=== PATIENT | female | born 1985 | race Caucasian/White ===

== ENCOUNTER 2016-07-20 04:13 | Day surgery (SDC) | payer OTHER ==
[2016-07-20] VITALS (10 sets, daily range): BP systolic 101–119; BP diastolic 53–78; PULSE 69–96; TEMP 97.5–98
[~2016-07-20] VITALS: Ht 165.1 cm; Wt 90.8 kg
[~2016-07-20 04:13] MED LIST: FIORICET W/CODE1 CA1 PO; KLONOPIN 0.5MG0.5 MG PO; MOTRIN 600600 MG/TAB PO; NEXPLANON68 MG ID; NO HOME MEDICATIONS; NORCO 325 MG-51 TAB PO; PERCOCET 325 MG1 TA2 PO; PRENATAL1 TA1 PO; ULTRAM 50MG TAB50 MG PO
[2016-07-20] MEDS ORDERED: CELEXA 20MG20 MG/TAB PO (04:20)
[2016-07-20] MEDS ORDERED: BIRTH CONTROL PILL (04:21)
[2016-07-20 04:42] LABS: BASO % 0.2 % (0.0-2.0); EOS # 0.1 (0.0-0.7); EOS % 0.5 % (0-4.0); GRAN # 12.7 (1.4-6.5); GRAN % 80.1 % (42.2-75.2); HEMATOCRIT 42.2 % (37.0-47.0); HEMOGLOBIN 14.3 g/dl (12.5-16.0); LYMPH # 2.2 (1.2-3.4); LYMPH % 13.8 % (20.0-51.0); MEAN CELL VOLUME 86 fl (80.0-100.0); MEAN CORPUSCULAR HEMOGLOBIN 29 pg (27.0-31.0); MEAN CORPUSCULAR HGB CONC 34 g/dl (33.0-37.0); MEAN PLATELET VOLUME 10.4 fl (7.4-10.4); MONO # 0.8 (0.1-0.6); MONO % 5.1 % (1.7-9.3); PLATELET COUNT 300 K/mm3 (130-400); RED BLOOD COUNT 4.91 M/mm3 (4.10-5.30); REDCELL DISTRIBUTION WIDTH-CV 11.8 % (11.5-14.5); WHITE BLOOD COUNT 15.9 K/mm3 (4.8-10.8)
[2016-07-20 04:56] LABS: ADJUSTED CALCIUM 9.6 mg/dL (8.4-10.2); ALANINE AMINOTRANSFERASE 32 U/L (9-52); ALBUMIN 3.8 gm/dL (3.5-5.0); ALKALINE PHOSPHATASE 90 U/L (50-136); ANION GAP 11 mmol/L (7-16); BILIRUBIN,TOTAL 0.8 mg/dL (0.0-1.0); BLOOD UREA NITROGEN 10 mg/dL (7-17); CALCIUM 9.4 mg/dL (8.4-10.2); CARBON DIOXIDE 25 mmol/L (22-30); CHLORIDE 102 mmol/L (98-107); CREATININE, serum 0.63 mg/dL (0.52-1.25); GLUCOSE 113 mg/dL (74-106); LIPASE 43 U/L (23-300); POTASSIUM 3.3 mmol/L (3.4-5.0); SODIUM 139 mmol/L (137-145); TOTAL PROTEIN 6.3 gm/dL (6.4-8.2)
[2016-07-20 05:02] LABS: PH 5 (5-8); URINE APPEARANCE Cloudy; URINE BACTERIA None Seen /hpf; URINE BILIRUBIN Negative (NEGATIVE); URINE BLOOD 1+ (NEGATIVE); URINE COLOR Yellow; URINE GLUCOSE Negative (NEGATIVE); URINE KETONE Negative (NEGATIVE); URINE UROBILINOGEN Negative (NEGATIVE)
[2016-07-20 05:03] LABS: C-REACTIVE PROTEIN < 0.5 mg/dL (0.0-0.9)
[2016-07-20] MEDS ORDERED: CLARITIN 1010 MG/TAB PO (08:16)
== END 2016-07-20 16:35 | disposition home or self-care (01) ==
LOC: COL.ER 04:13 → SURG 05:51 → SDCO 05:51
PROVIDERS: Emergency Medicine
DX: K35.80 Unspecified acute appendicitis (principal)
CPT/HCPCS: OP; J0694; J0696; J1100; J1170; J1200; J1885; J2250; J2405; J2704; J2710; J3010; J3410; J7030; J7120; Q9967

== ENCOUNTER 2017-05-25 01:12 | Inpatient (IN) | payer OTHER ==
[~2017-05-25] VITALS: Ht 167.6 cm; Wt 100.9 kg
[2017-05-25] VITALS (24 sets, daily range): BP systolic 101–136; BP diastolic 64–88; PULSE 81–127; TEMP 97.5–98
[~2017-05-25 01:12] MED LIST changes: +BIRTH CONTROL PILL; +CELEXA 20MG20 MG/TAB PO; +CLARITIN 1010 MG/TAB PO
[2017-05-25 02:39] LABS: BASO % 0.3 % (0.0-2.0); EOS # 0.1 (0.0-0.7); EOS % 0.6 % (0-4.0); GRAN # 10.7 (1.4-6.5); GRAN % 74.9 % (42.2-75.2); HEMOGLOBIN 12.3 g/dl (12.5-16.0); LYMPH # 2.4 (1.2-3.4); LYMPH % 16.5 % (20.0-51.0); MEAN CELL VOLUME 87 fl (80.0-100.0); MEAN CORPUSCULAR HEMOGLOBIN 30 pg (27.0-31.0); MEAN CORPUSCULAR HGB CONC 34 g/dl (33.0-37.0); MEAN PLATELET VOLUME 12.4 fl (7.4-10.4); MONO % 7.1 % (1.7-9.3); PLATELET COUNT 236 K/mm3 (130-400); RED BLOOD COUNT 4.17 M/mm3 (4.10-5.30); WHITE BLOOD COUNT 14.3 K/mm3 (4.8-10.8)
[2017-05-25 02:45] LABS: HEMATOCRIT 36.2 % (37.0-47.0)
[2017-05-26 08:50] VITALS: BP 124/76; PULSE 91; TEMP 98
[2017-05-26] MEDS ORDERED: IBU600 MG PO (11:35)
[2017-05-26 16:30] VITALS: BP 128/86; PULSE 91; TEMP 98.1
[2017-05-26 20:15] VITALS: BP 126/89; PULSE 93; TEMP 98.4
[2017-05-27 07:25] VITALS: BP 124/86; PULSE 81; TEMP 98
== END 2017-05-27 13:00 | disposition home or self-care (01) | DRG 775 ==
LOC: LDRO 01:12 → OB 02:01 → LDR 02:01 → OB 09:40 → LDR 16:42 → OB 16:42 → LDR 16:42 → OB 05-27 13:00
PROVIDERS: Obstetrics & Gynecology
PROC: 10E0XZZ Delivery of Products of Conception, External Approach (ICD-10-PCS; principal; 2017-05-25)
PROC: 0HQ9XZZ Repair Perineum Skin, External Approach (ICD-10-PCS; 2017-05-25)
DX: O69.81X0 Labor and delivery complicated by cord around neck, without compression, not applicable or unspecified (principal); O70.0 First degree perineal laceration during delivery; Z3A.39 39 weeks gestation of pregnancy; Z37.0 Single live birth
CPT/HCPCS: J2405; J2590; J7120